=== PATIENT | female | born 1965 | race African-American/Black ===

== ENCOUNTER 2016-08-23 12:43 | Emergency (ER) | payer OTHER ==
[~2016-08-23] VITALS: Ht 160 cm; Wt 114.4 kg
[~2016-08-23 12:43] MED LIST: ASPIR-LOW81 MG PO; BENZONATATE100 MG PO; DILANTIN100 MG PO; FLUOXETINE HCL20 MG PO; KETOROLAC TROME10 MG PO; LISINOPRIL20 MG PO; LISINOPRIL40 MG PO; PHENYTOIN SODI100 M1 PO; PHENYTOIN SODI200 MG PO; PRAVASTATIN SOD40 MG PO; PROZAC20 MG PO; PROZAC40 MG PO; QUETIAPINE FUM200 MG PO; SEROQUEL200 MG PO; TOPIRAMATE25 MG PO; ZESTRIL20 MG PO; ZOLOFT50 MG PO
[2016-08-23 13:14] VITALS: BP 126/57
== END 2016-08-23 16:20 | disposition left against medical advice (07) ==
LOC: EME 12:43
DX: M54.5 Low back pain (principal); R05 Cough; Z53.21 Procedure and treatment not carried out due to patient leaving prior to being seen by health care provider

== ENCOUNTER 2016-09-08 12:52 | Emergency (ER) | payer OTHER ==
[~2016-09-08] VITALS: Ht 160 cm; Wt 114.4 kg
[2016-09-08] MEDS ORDERED: NAPROSYN500 MG PO (16:33)
[2016-09-08] MEDS ORDERED: TESSALON PERLE100 MG PO (16:34)
[2016-09-08 16:54] VITALS: BP 153/100
== END 2016-09-08 16:55 | disposition home or self-care (01) ==
LOC: EME 12:52
DX: M25.561 Pain in right knee (principal); M54.9 Dorsalgia, unspecified; G89.29 Other chronic pain; R05 Cough; Z72.0 Tobacco use
CPT/HCPCS: 99281; 99283